=== PATIENT | female | born 1980 | race Caucasian/White ===

== ENCOUNTER 2017-05-16 23:31 | Emergency (ER) | payer OTHER ==
[~2017-05-16] VITALS: Ht 162.6 cm; Wt 68.0 kg
[2017-05-16 23:36] VITALS: BP 111/73
[2017-05-17] MEDS ORDERED: IBUPROFEN 800 MG TAB PO ONE ×2 (00:51→01:00)
== END 2017-05-17 02:05 | disposition home or self-care (01) ==
LOC: ER 23:31
DX: S33.5XXA Sprain of ligaments of lumbar spine, initial encounter (principal); M79.1 Myalgia; Z98.51 Tubal ligation status; Z91.012 Allergy to eggs; Z91.013 Allergy to seafood; X50.9XXA Other and unspecified overexertion or strenuous movements or postures, initial encounter; Y93.89 Activity, other specified; Y99.8 Other external cause status; Y92.89 Other specified places as the place of occurrence of the external cause
CPT/HCPCS: 72131